=== PATIENT | male | born 1965 | race Asian ===

== ENCOUNTER 2017-07-05 00:47 | Emergency (ER) | payer OTHER ==
[~2017-07-05] VITALS: Ht 152.4 cm; Wt 45.4 kg
[2017-07-05] MEDS ORDERED: PRILOSEC 20 MG20 MG PO (00:52)
[2017-07-05] MEDS ORDERED: METFORMIN HCL500 MG PO (00:52)
[2017-07-05] MEDS ORDERED: RECTICARE30 GM TOP (01:20)
[2017-07-05] MEDS ORDERED: NORCO 5-325 TA1 EACH PO (01:20)
[2017-07-05 03:30] VITALS: BP 106/72
== END 2017-07-05 02:31 | disposition home or self-care (01) ==
LOC: ER 00:47
DX: K64.8 Other hemorrhoids (principal); E11.9 Type 2 diabetes mellitus without complications; J45.909 Unspecified asthma, uncomplicated